=== PATIENT | female | born 1955 | race Caucasian/White ===

== ENCOUNTER 2021-03-21 05:28 | Day surgery (SDC) | payer BC ==
[2021-03-21] MEDS ORDERED: Midazolam 1 MG/ML 2 ML SDV IV ONE ×7 (05:29→06:47)
[2021-03-21] MEDS ORDERED: fentaNYL 100 MCG/2 ML SDV IV ONE ×5 (05:29→06:51)
[2021-03-21] MEDS ORDERED: Midazolam 1 MG/ML 2 ML SDV ONE (05:53)
[2021-03-21] MEDS ORDERED: fentaNYL 100 MCG/2 ML SDV ONE (05:53)
[2021-03-21] MEDS ORDERED: Sodium Chloride 0.9% 10 ML Syringe FLUSH PRN (06:00)
[2021-03-21] MEDS ORDERED: Dextrose 5%-0.45% NaCl 1,000 ML IV SCH (06:00)
--- NOTE | 2021-03-21 07:37 | OR ---
DATE: 03/21/2021 PROCEDURE: Total colonoscopy. INSTRUMENT USED: [id number]-H190DL Olympus video colonoscope. PREMEDICATIONS: Fentanyl 150 mcg intravenous, Versed 4 mg intravenous. Nasal O2 cannula. The procedure was done under pulse oximetry, BP recording, and cafeteria monitor. INDICATION: Screening colonoscopic examination is done for detection of any polypoid lesions and removal, endoscopic hemostasis therapy if needed. DESCRIPTION OF PROCEDURE: Initial rectal exam showed external hemorrhoidal tags. Rigid anoscopy was normal. The colonoscope was passed with ease up to the ileocecal area. Photographs were taken of the normal-appearing cecum identified by double-bulged ileocecal folds. No bleeding was noted from any of the visualized areas at the commencement of the examination. Bowel preparation was found to be adequate, [place] scale 2 in right and transverse colon, 3 in left colon, total score 7. The colon was found to be redundant. No stricture. No vascular ectasia. No large isolated ulcerations seen. No evidence of diffuse inflammatory bowel disease in the form of friability, contact bleeding, or ulcerations. No polyp or tumor mass identified. Probing the proximal sides of folds and flexures using adequate distention and clearing of the stool material, withdrawal of the scope was made, cecum to rectum time over 9 minutes. Second look of the right colon was made. No bleeding was noted from any of the visualized areas at the completion of examination. IMPRESSION: External hemorrhoids. The patient tolerated the procedure well. [facility] /[id number]
[2021-03-21] MEDS ORDERED: Sodium Chloride 0.9% 1,000 ML IV SCH (07:45)
== END 2021-03-21 09:00 | disposition home or self-care (01) ==
LOC: DL.ENDO 05:28
PROVIDERS: ATTEND Internal Medicine Gastroenterology
DX: Z12.11 Encounter for screening for malignant neoplasm of colon (principal); K64.4 Residual hemorrhoidal skin tags; E78.5 Hyperlipidemia, unspecified; G25.81 Restless legs syndrome; Z98.890 Other specified postprocedural states
CPT/HCPCS: J2250; J3010; J7030; J7042